=== PATIENT | female | born 1950 | race Two or more races ===

== ENCOUNTER 2016-10-08 17:51 | Emergency (ER) | payer OTHER, MEDICAID ==
--- NOTE | 2016-10-08 18:57 | EDPHY ---
H & P Time Seen by Provider: 10/08/16 18:44 HPI/ROS: Chief complaint. Foot pain HPI. 66 female history of gout. Left left foot painful swollen and somewhat red for 5 days. No injury. Has had gout is similar to this previously. No fever. No trauma ROS Constitutional. no fever/chills, no weakness Eyes. no problems with vision ENT. no sore throat, no nasal drainage Cardiovascular. no chest pain Respiratory. no shortness of breath, no cough Abdominal. no abdominal pain, no nausea/vomiting, no diarrhea . no problems urinating MS. Left foot pain with redness and swelling Skin. no rash Lymph. no swollen glands Neuro. no headache, no dizziness, no difficulty walking or with speech Past Medical/Surgical History: Arthritis, seasonal allergies Social History: , nonsmoker, no alcohol Smoking Status: Never smoked Physical Exam: General Appearance: Alert well-developed female mild distress vital signs are stable Eyes: Pupils equal and round no pallor or injection. ENT, Mouth: Mucous membranes are moist. Respiratory: There are no retractions, lungs are clear to auscultation. Cardiovascular: Regular rate and rhythm. Gastrointestinal: Abdomen is soft and nontender, no masses, bowel sounds normal. Neurological: Awake and alert, sensory and motor exams grossly normal. Skin: Skin is somewhat erythematous to the dorsal lateral aspect of the left foot. Mild swelling. No lymphangitis. No evidence for laceration or sore that would suggest cellulitis. Musculoskeletal: Neck is supple nontender. Extremities symmetrical, full range of motion. Psychiatric: Patient is oriented X 3, there is no agitation. 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 the patient, her , and I discussed treatment plan including criteria for return and importance of follow-up and further evaluation. They expressed understanding and agreement Patient is given Indocin by mouth in the emergency department Differential Diagnosis: I considered gout, cellulitis, fracture, dislocation Departure - Departure Disposition: Home, Routine, Self-Care Clinical Impression: Gout attack Qualifiers: Gout site: foot Gout etiology: unspecified cause Laterality: left Qualifier Code: (M10.9) Gout, unspecified Condition: Good Instructions: Low Purine Diet (ED), Gout (ED) Additional Instructions: Elevation in easy activity. Indocin 3 times daily. Return for worsening pain, fever, redness. Recheck in 2 days if not improving Referrals: NONE *PRIMARY CARE P,. [Primary Care Provider] - As per Instructions Donnell Kohli MD [Medical Doctor] - 2-3 days, if not improved Prescriptions: Indomethacin [Indocin 25 mg (*)] 25 mg PO TID #14 cap
--- NOTE | 2016-10-08 19:31 | DX ---
Left foot, 3 views Indication: Pain and redness in the left lateral foot. Findings: There is mild osteoarthritic changes of the interphalangeal joints and midfoot. No definit e evidence of an acute fracture. Some linear triangular calcifications are present near the base of t he fourth proximal phalanx laterally and the base of the fifth proximal phalanx laterally. I do not s ee an avulsion site. I do not think these represent fractures. Benign-appearing calcifications are p resent along the base of the fifth metatarsal and near the calcaneocuboid region. Bony spurring is pr esent along the posterior calcaneus. Impression: Mild osteoarthritic changes without evidence of significant fracture, dislocation or gou t.
[2016-10-08] MEDS ORDERED: INDOMETHACIN 25 MG CAP PO ONE (19:33)
[2016-10-08 20:09] VITALS: BP 147/84; PULSE 92; RESP 18; TEMP 98.6; O2SAT 93
== END 2016-10-08 20:10 | disposition home or self-care (01) ==
DX: M10.9 Gout, unspecified (principal)